=== PATIENT | male | born 1945 | race African-American/Black ===

== ENCOUNTER 2018-04-16 07:49 | Day surgery (SDC) | payer MEDICARE, OTHER ==
[~2018-04-16 07:49] MED LIST: DIPHENHYDRAMINE HCL 50 MG/ML VIAL ONE; EPINEPHRINE INJ 1 MG/10 ML DISP.SYRIN ONE; FLUMAZENIL INJ 0.5 MG/5 ML VIAL ONE; GLUCAGON,HUMAN RECOMB 1 MG INJ ONE; NALOXONE HCL INJ/PF 0.4 MG/1 ML SDV ONE; ONDANSETRON HCL INJ/PF 4 MG/2 ML SDV ONE
[2018-04-16] MEDS: MIDAZOLAM 2 MG/2 ML INJ ONE ×4 (08:15→08:45)
[2018-04-16] MEDS: FENTANYL CITRATE INJ/PF 100 MCG/2 ML AMPUL ONE ×5 (08:17→08:40)
--- NOTE | 2018-04-16 09:10 | Operative Report ---
Nonrecallable Operative Report DATE OF SURGERY: 04/16/18 PREOPERATIVE DIAGNOSIS: screening colonoscopy POSTOPERATIVE DIAGNOSIS: screening colonoscopy OPERATION: colonoscopy SURGEON: GRADY MARTÍNEZ ANESTHESIA: Moderate Sedation TISSUE REMOVED OR ALTERED: polyps x2. cecum, transverse colon COMPLICATIONS: none ESTIMATED BLOOD LOSS: 2cc INTRAOPERATIVE FINDINGS: see dictation PROCEDURE: see dictation
--- NOTE | 2018-04-16 09:11 | Discharge Summary ---
Discharge Summary (SDC) - Discharge Final Diagnosis: screening colonoscopy Date of Surgery: 04/16/18 Condition: Good Referrals: LINNETTE POWERS MD [Primary Care Provider] - Discharge Diet: As Tolerated Discharge Activity: Activity As Tolerated Report the Following to Your Physician Immediately: Shortness of Breath, Nausea, Vomiting, Increase in Pain
--- NOTE | 2018-04-16 09:33 | OPERATIVE REPORT E ---
Operative Report NAME: HAMIDA LEAHY : 1945 AGE: 73Y DATE OF SURGERY: 04/16/2018 ROOM: PREOPERATIVE DIAGNOSIS: Screening colonoscopy. POSTOPERATIVE DIAGNOSIS: Screening colonoscopy. OPERATIVE PROCEDURE: Screening colonoscopy with biopsy. SURGEON: GRADY MARTÍNEZ M.D. ANESTHESIA: IV sedation. INDICATIONS FOR PROCEDURE: This is a 73-year-old male with a previous history of colonic polyps x2. Last colonoscopy was approximately 5 years ago, at which time he had 2 transverse colon polyps removed. He is now being scheduled for a repeat colonoscopy. PROCEDURE: The patient was brought to the endoscopy awake, alert, in stable condition, given IV sedation, and placed in a left lateral decubitus position. After an appropriate time out the Olympus colonoscope was easily passed into the rectum and then manipulated up the descending colon to the transverse colon to the hepatic flexure and to the cecum. This was done using direct visualization, and then a slow withdrawal time of approximately 8 minutes then ensued. As we began following the scope from the cecum we noted the ileocecal valve as well as a small colonic polyp on the cecal wall, which was piecemeal removed using forceps. As we then traversed the ascending colon to the hepatic flexure we noted that in the mid transverse colon there was a second polyp that was also completely removed piecemeal using biopsy forceps. We then completely visualized the rest of the transverse colon and splenic flexure down to the descending colon and there were no other polyps that could be identified. There were no polyps identified in the sigmoid or rectum. The scope was removed, which completed the procedure. The patient tolerated the procedure well and was returned to recovery in stable condition. FINDINGS: Colonic polyps x2, cecum and mid transverse colon. SPECIMENS: Polyps x2. DICTATING PHYSICIAN: GRADY MARTÍNEZ M.D. [id number] PHY#: [id number] ID: [id number] JOB#: [id number] ACCT: [id number] cc:GRADY MARTÍNEZ M.D. >
[2018-04-16 10:25] VITALS: BP 114/54
== END 2018-04-16 10:10 | disposition home or self-care (01) ==
LOC: END 07:49
PROVIDERS: ATTEND Surgery
DX: Z12.11 Encounter for screening for malignant neoplasm of colon (principal); D12.0 Benign neoplasm of cecum; D12.3 Benign neoplasm of transverse colon; Z86.010 Personal history of colon polyps; E11.9 Type 2 diabetes mellitus without complications; Z79.84 Long term (current) use of oral hypoglycemic drugs; Z79.899 Other long term (current) drug therapy; Z88.5 Allergy status to narcotic agent
CPT/HCPCS: 45380; 82962; 88305 ×2; J2250; J3010; J0171; J1200; J1610; J2310; J2405; J3490